=== PATIENT | female | born 2000 | race Two or more races ===

== ENCOUNTER 2023-06-10 11:13 | Emergency (ER) | payer OTHER ==
[~2023-06-10] VITALS: Ht 177.8 cm; Wt 80.7 kg
[2023-06-10 12:48] LABS: HEMATOCRIT 39.8 % (36.0-45.00); HEMOGLOBIN 13.5 g/dL (12.0-15.00); MEAN CELL VOLUME 89.6 fL (80.00-100.00); MEAN CORPUSCULAR HEMOGLOBIN 30.4 pg (27.00-32.0); MEAN CORPUSCULAR HGB CONC 33.9 g/dl (32.0-36.0); PLATELET COUNT 305 K/uL (150-450); RED BLOOD COUNT 4.44 M/uL (4.00-6.00); RED CELL DISTRIBUTION WIDTH 13.4 % (11.5-14.5)
[2023-06-10 13:06] LABS: ALBUMIN 4.2 gm/dL (3.4-5.0); BILIRUBIN TOTAL 0.99 mg/dL (0.3-1.2); CALCIUM 9.1 mg/dL (8.5-10.1); CREATININE SERUM 0.86 mg/dL (0.55-1.02); GFR 82.51; GLOBULINA 3.9 G/DL (2.4-3.5); POTASSIUM 3.37 mEq/L (3.5-5.1); TOTAL PROTEIN 8.1 gm/dL (6.4-8.2)
== END 2023-06-10 18:49 | disposition home or self-care (01) ==
LOC: ER 11:14
PROVIDERS: General Practice
DX: A09 Infectious gastroenteritis and colitis, unspecified (principal); Z20.822 Contact with and (suspected) exposure to COVID-19

== ENCOUNTER 2023-06-30 13:42 | Emergency (ER) | payer OTHER ==
[~2023-06-30] VITALS: Ht 180.3 cm; Wt 72.6 kg
== END 2023-06-30 14:52 | disposition home or self-care (01) ==
LOC: ER 13:42
DX: S05.32XA Ocular laceration without prolapse or loss of intraocular tissue, left eye, initial encounter (principal); X58.XXXA Exposure to other specified factors, initial encounter; Y93.89 Activity, other specified; Y92.89 Other specified places as the place of occurrence of the external cause

== ENCOUNTER 2025-04-16 10:35 | Emergency (ER) | payer OTHER ==
[~2025-04-16] VITALS: Ht 177.8 cm; Wt 86.2 kg
[2025-04-16 11:20] VITALS: BP 114/75; O2SAT 99
[2025-04-16] MEDS ORDERED: MECLIZINE HCL 25 MG TABLET PO STA (12:13)
[2025-04-16 12:47] LABS: BASO % 0.9 % (0.1-1.2); EOS # 0.09 (0.04-0.54); EOS % 1.3 % (0.7-7.0); LYMPH # 1.63 (1.18-3.74); LYMPH % 23.7 % (19.3-53.1); MEAN PLATELET VOLUME 10.40 fl (9.4-12.4); MONO # 0.50 (0.24-0.82); MONO % 7.3 % (4.7-12.5); NEUT # 4.60 (1.56-6.13); NEUT % 66.7 % (34.0-71.1); RED CELL DISTRIBUTION WIDTH 12.0 % (11.6-14.4)
[2025-04-16 13:12] LABS: ALT/SGPT 16.0 U/L (12-78); AST/SGOT 9.0 U/L (15-37); BILIRUBIN TOTAL 0.67 mg/dL (0.3-1.2); BUN CREA RATIO 12.0 (7.0-25.0); CREATININE SERUM 0.75 mg/dL (0.55-1.02); GFR 94.94; GLOBULINA 3.6 G/DL (2.4-3.5); GLUCOSE FASTING 99.0 mg/dL (65-100); OSMOLALITY SERUM 278.0 MOSM/KG (275-295)
== END 2025-04-16 14:53 | disposition home or self-care (01) ==
LOC: ER 10:35
DX: H81.10 Benign paroxysmal vertigo, unspecified ear (principal)